=== PATIENT | female | born 1985 | race Caucasian/White ===

== ENCOUNTER 2018-07-14 20:09 | Inpatient (IN) | payer BC ==
[2018-07-14] VITALS (11 sets, daily range): BP systolic 102–164; BP diastolic 47–95; PULSE 92–117; TEMP 97.6–98.5
[~2018-07-14] VITALS: Ht 170.2 cm; Wt 126.8 kg
[~2018-07-14 20:09] MED LIST: CEPHALEXIN500 M1 PO; MOTRIN 600600 MG/TAB PO; PERCOCET 325 MG1 TA2 PO; PRENATAL1 TA1 PO; TYLENOL 325MG325 MG PO
[2018-07-14] MEDS ORDERED: PROTONIX 40MG T40 MG PO (20:27)
[2018-07-14 21:06] LABS: BASO % 0.3 % (0.0-2.0); EOS # 0.1 (0.0-0.7); EOS % 0.7 % (0-4.0); GRAN # 6.7 (1.4-6.5); GRAN % 66.7 % (42.2-75.2); HEMATOCRIT 38.7 % (37.0-47.0); HEMOGLOBIN 13.3 g/dl (12.5-16.0); LYMPH # 2.4 (1.2-3.4); LYMPH % 23.9 % (20.0-51.0); MEAN CELL VOLUME 92 fl (80.0-100.0); MEAN CORPUSCULAR HEMOGLOBIN 32 pg (27.0-31.0); MEAN CORPUSCULAR HGB CONC 34 g/dl (33.0-37.0); MEAN PLATELET VOLUME 9.7 fl (7.4-10.4); MONO # 0.8 (0.1-0.6); MONO % 7.9 % (1.7-9.3); PLATELET COUNT 246 K/mm3 (130-400); REDCELL DISTRIBUTION WIDTH-CV 13.3 % (11.5-14.5)
--- NOTE | 2018-07-14 22:00 | NUR ---
2014- Patient transported to [facility] via wheelchair for ED. Patient ambulatory into restroom to void and change into gown. 2017- EFM and TOCO on and tracing. Patient states SROM at 1915 with moderate amount of clear, odorless fluid. Amniotrace completed and postive for ROM. On-call MD updated and orders received. Assessment completed. BP high. MD updated. 2034- Patient ambulatory to OR for repeat section.
[2018-07-15] VITALS (10 sets, daily range): BP systolic 137–149; BP diastolic 68–91; PULSE 78–114; TEMP 97.7–98.2
--- NOTE | 2018-07-15 | NUR ---
2203- C/S delivery of viable baby girl. See Nursery RN note. 2205- Manual delivery of placenta. Cord blood obtained. Cord gasses obtained by KASANDRA Borja. 2300- Patient transported to PACU via bed. 2330- Patient transported to PP room via bed. PP Recovery vitals started.
[2018-07-15 02:30] LABS: BASO % 0.2 % (0.0-2.0); EOS % 0.1 % (0-4.0); GRAN # 14.5 (1.4-6.5); HEMOGLOBIN 12.5 g/dl (12.5-16.0); LYMPH # 1.8 (1.2-3.4); LYMPH % 10.3 % (20.0-51.0); MEAN CELL VOLUME 93 fl (80.0-100.0); MEAN CORPUSCULAR HEMOGLOBIN 31 pg (27.0-31.0); MEAN CORPUSCULAR HGB CONC 34 g/dl (33.0-37.0); MEAN PLATELET VOLUME 9.6 fl (7.4-10.4); MONO % 5.9 % (1.7-9.3); PLATELET COUNT 214 K/mm3 (130-400); REDCELL DISTRIBUTION WIDTH-CV 13.2 % (11.5-14.5)
[2018-07-15 02:46] LABS: ALBUMIN 2.7 gm/dL (3.5-5.0); BILIRUBIN,TOTAL 0.6 mg/dL (0.0-1.0); CALCIUM 9.4 mg/dL (8.4-10.2); CREATININE, serum 0.5 mg/dL (0.52-1.25); TOTAL PROTEIN 5.6 gm/dL (6.4-8.2)
--- NOTE | 2018-07-15 05:00 | NUR ---
0000- BP Parameters: Call if BP >160/>100. See Physician Notification. 0400- Patient has baby to breast. 0430- RN to bedside. Patient ambulated to restroom independently with RN standing by. Cesar catheter removed. Patient unable to void at this time. Pericare completed. Clean gown provided. Moderate amount of bleeding noted on peripad at bed change. Patient educated on stages of lochia and what to expect. 0500- Patient complains of uterine pain after . See eMAR.
[2018-07-16 09:36] VITALS: BP 135/78; PULSE 100; TEMP 97.6
[2018-07-16 16:18] VITALS: BP 147/83; PULSE 102; TEMP 97.6
[2018-07-16 20:00] VITALS: BP 132/89; PULSE 100; TEMP 97.9
[2018-07-17 08:53] VITALS: BP 146/106; PULSE 103; TEMP 97.9
[2018-07-17] MEDS ORDERED: PERCOCET 325 MG1 TA2 PO (09:00)
[2018-07-17] MEDS ORDERED: IBU600 MG PO (09:00)
--- NOTE | 2018-07-17 09:45 | NUR ---
Initial visit; Family concepcion, [employer] left card of congratulations for the of their daughter with information regarding the availability of spiritual care at [place].
== END 2018-07-17 12:40 | disposition home or self-care (01) | DRG 788 ==
LOC: LDRO 20:09 → OB 20:35
PROVIDERS: Obstetrics & Gynecology; ADMIT Obstetrics & Gynecology
PROC: 10D00Z1 Extraction of Products of Conception, Low, Open Approach (ICD-10-PCS; principal; 2018-07-14)
DX: O34.211 Maternal care for low transverse scar from previous cesarean delivery (principal); Z3A.38 38 weeks gestation of pregnancy; Z37.0 Single live birth; O13.4 Gestational [pregnancy-induced] hypertension without significant proteinuria, complicating childbirth; O99.824 Streptococcus B carrier state complicating childbirth; O99.214 Obesity complicating childbirth; O42.92 Full-term premature rupture of membranes, unspecified as to length of time between rupture and onset of labor; Z88.0 Allergy status to penicillin; O26.893 Other specified pregnancy related conditions, third trimester; Z67.41 Type O blood, Rh negative
CPT/HCPCS: J0690; J1885; J2370; J2405; J2590; J2791; J3010; J7120